=== PATIENT | male | born 1995 | race Caucasian/White ===

== ENCOUNTER 2016-08-07 08:12 | Emergency (ER) | payer OTHER ==
[~2016-08-07] VITALS: Ht 185.4 cm; Wt 102.3 kg
[~2016-08-07 08:12] MED LIST: NO HOME MEDICATIONS
[2016-08-07 08:15] VITALS: TEMP 98.3
[2016-08-07 09:03] LABS: BASO % 0.3 % (0.0-2.0); EOS # 0.1 (0.0-0.7); EOS % 1.4 % (0-4.0); GRAN # 5.6 (1.4-6.5); HEMATOCRIT 47.7 % (42.0-52.0); HEMOGLOBIN 16.7 g/dl (13.5-18.0); LYMPH # 1.5 (1.2-3.4); LYMPH % 19.1 % (20.0-51.0); MEAN CELL VOLUME 87 fl (80.0-100.0); MEAN CORPUSCULAR HEMOGLOBIN 30 pg (27.0-31.0); MEAN CORPUSCULAR HGB CONC 35 g/dl (33.0-37.0); MEAN PLATELET VOLUME 10.3 fl (7.4-10.4); MONO # 0.6 (0.1-0.6); MONO % 7.9 % (1.7-9.3); PLATELET COUNT 231 K/mm3 (130-400); REDCELL DISTRIBUTION WIDTH-CV 11.9 % (11.5-14.5); WHITE BLOOD COUNT 7.9 K/mm3 (4.8-10.8)
[2016-08-07 09:06] LABS: CREATININE, serum 0.82 mg/dL (0.66-1.25); POTASSIUM 4.2 mmol/L (3.4-5.0)
[2016-08-07] MEDS ORDERED: FLEXERIL 1010 MG/TAB PO (09:57)
[2016-08-07 10:29] LABS: PH 6 (5-8); SQUAMOUS EPITHELIAL 0-2 /hpf; URINE APPEARANCE Clear; URINE BACTERIA None Seen /hpf; URINE BILIRUBIN Negative (NEGATIVE); URINE BLOOD Negative (NEGATIVE); URINE COLOR Yellow; URINE GLUCOSE Negative (NEGATIVE); URINE KETONE Trace (NEGATIVE); URINE RBC 0-2 /hpf; URINE UROBILINOGEN Negative (NEGATIVE); URINE WBC 0-2 /hpf
[2016-08-07 11:08] VITALS: BP 134/81; PULSE 85
== END 2016-08-07 10:26 | disposition home or self-care (01) ==
LOC: COL.ER 08:12
PROVIDERS: Emergency Medicine; Physician Assistant
DX: S06.0X0A Concussion without loss of consciousness, initial encounter (principal); S01.02XA Laceration with foreign body of scalp, initial encounter; S60.512A Abrasion of left hand, initial encounter; V48.5XXA Car driver injured in noncollision transport accident in traffic accident, initial encounter; Y93.I9 Activity, other involving external motion
CPT/HCPCS: J2405; J7040